=== PATIENT | female | born 1985 | race Caucasian/White ===

== ENCOUNTER 2017-04-29 17:20 | Emergency (ER) | payer OTHER ==
[2017-04-29] MEDS ORDERED: LIDOCAINE HCL 2% JELLY 1 APP/5 ML TUBE ONE (17:42)
[2017-04-29] MEDS ORDERED: FENTANYL 100 MCG/2 ML VIAL ONE (18:21)
[2017-04-29] MEDS ORDERED: LIDOCAINE HCL 5% OINT 35 APP/35.44 GM TUBE TOPICAL ONE (18:39)
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
--- NOTE | 2017-05-01 19:12 | ER PHYSICIAN DOCUMENTATION ---
Physician Documentation [facility] Name:Anastasiia Galeano Age:31 yrs Sex:Female :1985 Arrival Date:04/29/2017 Time:17:20 Bed6 Private MD: Gallo Mckee Disposition: 05/01 06:33 Chart complete. tl1 Disposition: 04/29/17 18:34 Discharged to Home/Self Care. Impression: Hand Abrasion. - Condition is Good. - Discharge Instructions: ABRASION. - Medical Reconciliation form form. - Follow up: Gallo Johnson MD; When: As needed; Reason: Recheck today's complaints. - Problem is new. - Symptoms have improved. HPI: 04/29 17:30 This 31 yrs old Female presents to ER via Private Vehicle with complaints of tl1 Hand Injury - LEFT. 17:30 The patient or guardian reports an abrasion. The complaints affect the left hand tl1 hypothenar eminence. Context: The problem was sustained outdoors, resulted from a fall, while walking. Onset: The symptom(s)/episode began/occurred suddenly, just prior to arrival. Historical: - Allergies: No known drug Allergies; - Home Meds: 1. bromocriptine oral 2. levothyroxine oral - PMHx: HYPOTHYROIDISM; PITUITARY; - PSHx: None; - Tetanus: < 10 years. - Ebola Screening: : Patient denies travel to an Ebola-affected area in the 21 days before illness onset. No symptoms or risks identified at this time. . - Immunization history: Flu Vaccine >1 year. - Social history: Smoking status: Patient states was never smoker of tobacco. ROS: 17:40 MS/extremity: Positive for abrasion. tl1 17:40 All other systems are negative. Exam: 17:40 Constitutional: This is a well developed, well nourished patient who is awake, alert, tl1 and in no acute distress. 17:40 Head/face: Exam is negative for acute changes. 17:40 Neck: ROM/movement: is normal, is supple. 17:40 Musculoskeletal/extremity: Exam is negative for acute changes. 17:40 Skin: Appearance: normal except for affected area, injury, abrasion(s), moderate sized abrasion noted, 2 cm(s), of the left hand hypothenar eminence. Vital Signs: 17:25 BP 102 / 74; Pulse 103; Resp 16; Temp 98.2(O); Pulse Ox 98% on R/A; Weight 58.97 kg arc (R); Height 5 ft. 4 in. (162.56 cm) (R); Pain 7/10; 18:51 BP 104 / 69; Pulse 63; Resp 16; Pulse Ox 97% on R/A; arc 19:10 BP 104 / 68; Pulse 18; Resp 78; Pulse Ox 97% on R/A; Pain 3/10; bw2 17:25 Body Mass Index 22.31 (58.97 kg, 162.56 cm) arc MDM: 17:27 Patient medically screened. tl1 19:00 Data reviewed: vital signs, nurses notes, and as a result, I will discharge patient. tl1 Counseling: I had a detailed discussion with the patient and/or guardian regarding: the historical points, exam findings, and any diagnostic results supporting the discharge/admit diagnosis, the need for outpatient follow up, to return to the emergency department if symptoms worsen or persist or if there are any questions or concerns that arise at home. Response to treatment: the patient's symptoms have mildly improved after treatment, , and as a result, I will discharge patient. ED course: superficial epidermis debrided by QUINTON Whitt. Dispensed Medications: 17:40 Drug: Lidocaine Ointment (2%) 1 inches; Route: Topical; Infused Over: 20 mins; Site: lc affected area; 18:26 Follow up: Response: Pain is decreased lc 18:10 Drug: fentaNYL [place] 100 mcg; Route: Intranasal; Site: both nares; lc 18:20 Follow up: Response: Pain is decreased lc 18:25 Drug: Lidocaine Ointment (5%) 1 inches; Route: Topical; Infused Over: 15 mins; Site: lc affected area; 19:00 Follow up: Response: Pain is decreased lc 19:10 Drug: HYDROcodone-acetaminophen (5mg/325 mg) 1-2 tabs 1 tabs; Route: PO; bw2 04/30 13:12 Follow up: Response: Pharmacy closed - take home med pack lc Signatures: Selena Whitt RN RN lc Leigh, Tom, MD MD 1 April [facility]
== END 2017-04-29 19:13 | disposition home or self-care (01) ==
LOC: ER 17:20
DX: S60.512A Abrasion of left hand, initial encounter (principal); W01.0XXA Fall on same level from slipping, tripping and stumbling without subsequent striking against object, initial encounter; Y92.89 Other specified places as the place of occurrence of the external cause; Y93.01 Activity, walking, marching and hiking
CPT/HCPCS: 99283; J3010